=== PATIENT | male | born 1950 | race Caucasian/White ===

== ENCOUNTER 2023-04-16 09:42 | Day surgery (SDC) | payer MEDICARE, BC ==
--- NOTE | 2023-04-16 08:59 | HP ---
DATE OF SURGERY: 04/16/2023 HISTORY OF PRESENT ILLNESS: The patient is a 72-year-old off and on the past year worse recently, prior dilatation years ago more mid to lower esophagus. Solids get stuck there, usually meat sometimes bread. PAST MEDICAL HISTORY: Reflux. Colon polyp in the past. Cataracts. 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 Kidney stones in the past. PAST SURGICAL HISTORY: Kidney stone surgery. Hemorrhoid. Colonoscopy. Carpal tunnel. Elbow surgery. Rotator cuff surgery. Hernia repair. Collar bone in the past. MEDICATIONS: Multivitamins, potassium, omeprazole, mycophenolate mofetil, amlodipine, aspirin. ALLERGIES: NKDA. FAMILY HISTORY: Lymphoma. SOCIAL HISTORY: No smoking. Occasional alcohol use. REVIEW OF SYSTEMS: Fourteen systems reviewed. No chest pain or palpitations. Other systems negative or noncontributory as above and per preadmission questionnaire. PHYSICAL EXAMINATION: Height 5'11". BMI 24.4. GENERAL: No acute distress. HEENT: Sclerae nonicteric. EOMI. Oral mucous membranes moist. NECK: No JVD. CHEST: Equal excursion, nonlabored breathing. CVS: Regular rate and rhythm. ABDOMEN: Soft. EXTREMITIES: No significant edema. NEURO: Alert, oriented, moving extremities symmetrically. No gross motor deficits noted. RECTAL: Deferred timed to endoscopy exam. PSYCH: Appropriate mood and affect. SKIN: Dry. IMPRESSION: Dysphagia mid to lower esophagus, prior dilatation years ago. Family history negative for esophageal cancer. He is in need of EGD possible dilatation, possible biopsy. General risk of bleeding or infection, risk of bowel injury or perforation possibly requiring further procedure or transfer for stent placement, possibility of no improvement in swallowing possibly requiring other studies, dilator or referral. Possible no narrowing to dilate or possible narrowing is a functional problem and dilatation may not benefit. If dilatation performed and does improve his swallowing may need to be repeated again down the road. He understands all of the above but not limited to. He agrees to the planned procedure. He understands that the swallowing problems could be related to scleroderma which may not improve. Otherwise continue medications for other than reflux problem. Will proceed with outpatient EGD, possible biopsy possible dilatation under MAC anesthesia.
[~2023-04-16 09:42] MED LIST: Lactated Ringers 1,000 ML IV SCH
[2023-04-16] MEDS ORDERED: Lactated Ringers 1,000 ML IV SCH (10:30)
[2023-04-16] MEDS ORDERED: Xylocaine-Mpf 2% 5 Ml Vial ONE (11:58)
[2023-04-16] MEDS ORDERED: DIPRIVAN 200 MG/20 ML IV ONE (11:58)
[2023-04-16] MEDS ORDERED: Versed 2 MG/2 ML Injection ONE (11:58)
[2023-04-16 12:48] VITALS: O2SAT 100
[2023-04-16 13:00] VITALS: BP 145/75; PULSE 57
--- NOTE | 2023-04-17 09:01 | OP ---
SURGERY DATE/TIME: 04/16/2023 1159 PREOPERATIVE DIAGNOSIS: Dysphagia. POSTOPERATIVE DIAGNOSES: 1) Mild gastritis. 2) Benign appearing gastric polyps. 3) Distal esophageal narrowing with minimal inflammation. No visible mass. PROCEDURES: 1) EGD with cold biopsy of antrum for Helicobacter pylori. 2) Cold biopsy gastric polyp. 3) Cold biopsy of distal and mid esophagus to evaluate for inflammation and/or eosinophilic esophagitis or other etiology. 4) Distal esophageal narrowing balloon dilatation (size 20 balloon). SURGEON: Dr. Will Michaels. ANESTHESIA: MAC. ESTIMATED BLOOD LOSS: Minimal. INDICATIONS: As noted above. Risks and benefits explained in detail and not limited to and consent obtained. DESCRIPTION OF PROCEDURE AND FINDINGS: The patient is taken to the endoscopy room. MAC anesthesia introduced. After official time out and no disagreement with planned procedure, a bite block positioned. Video gastroscope easily passed down the esophagus. There is distal esophageal narrowing and some minimal inflammation. It was felt this is where he is having his symptoms and warranted dilatation. The scope is able to be passed back through here again through the pylorus to the junction of the third and fourth portion of duodenum. The duodenum is grossly unremarkable. No signs of any ulcers or obvious lesions. The scope is pulled back in the stomach. He had some mild gastritis. Cold biopsy taken to evaluate for Helicobacter pylori. Good hemostasis noted. On retroflex, there were no signs of any large hiatal hernia on endoscopic view. He did have some benign appearing gastric polyps. Cold biopsy is taken to evaluate for path but appeared to be fundal gland-type polyps. Scope pulled back. Good hemostasis noted. The scope pulled back up distal esophagus about 40 cm at gastroesophageal junction. Cold biopsy is taken on the esophageal side for path. Good hemostasis noted. There were no signs of any masses, narrowed area, other scleroderma or whether kind of a Schatzki's type narrowing. Either way it is felt to warrant dilatation. While the staff was getting the balloon ready went up to the mid esophagus and did random cold biopsy to evaluate for eosinophilic esophagitis to rule out other cause of his dysphagia. Otherwise the scope is passed back down in the stomach. A 20 balloon catheter is carefully passed. The scope pulled back up to the narrowed area where the balloon is carefully inflated first stage 30 seconds, second stage 30 seconds, final stage 20 balloon dilator for 2 minutes. The balloon is then decompressed and withdrawn. The area seemed to be more widely patent after the balloon. There did not appear to be any evidence of any full thickness issue secondary to dilatation. The stomach decompressed. Scope is withdrawn. The patient tolerated the procedure well. Findings discussed with the family out in the waiting room.
== END 2023-04-16 13:10 | disposition home or self-care (01) ==
LOC: SDC 09:42
PROVIDERS: ATTEND Surgery
DX: K29.70 Gastritis, unspecified, without bleeding (principal); R31.0 Gross hematuria; K31.7 Polyp of stomach and duodenum; K22.2 Esophageal obstruction
CPT/HCPCS: C1726; J2250; J2704

== ENCOUNTER 2025-02-19 07:54 | Day surgery (SDC) | payer MEDICARE, BC ==
[2025-02-19] MEDS ORDERED: Lactated Ringers 1,000 ML IV ONE (07:58)
[2025-02-19] MEDS: Lactated Ringers 1,000 ML IV SCH (08:16)
[2025-02-19] MEDS ORDERED: Xylocaine-Mpf 2% 5 Ml Vial ONE (09:52)
[2025-02-19] MEDS ORDERED: propofoL IV ONE (09:52)
[2025-02-19 10:36] VITALS: RESP 18; O2SAT 98
[2025-02-19 10:50] VITALS: BP 109/86; PULSE 64; TEMP 98
--- NOTE | 2025-02-23 07:49 | OP ---
SURGERY DATE/TIME: 02/19/2025 [id number] PREOPERATIVE DIAGNOSIS: Dysphagia. POSTOPERATIVE DIAGNOSIS: Esophageal stricture. PROCEDURE: Esophagogastroduodenoscopy with balloon dilatation to size 40. SURGEON: Donavon Mcbride MD ANESTHESIA: General. COMPLICATIONS: None. CONDITION: Stable. INDICATION: Patient has recurrent dysphagia, presents for evaluation and possible dilation. DESCRIPTION OF PROCEDURE AND FINDINGS: Patient taken to the endoscopy. MAC general sedation. Scope introduced. Pharyngoesophageal junction normal. Vocal cords normal. Esophagus normal down to EG junction. There was a stricture about size 30. Fundus, body, and antrum was normal. Pylorus was normal. Duodenal bulb was normal. Second portion was normal. Scope withdrawn and looped upon itself satisfactorily. No hiatal hernia. Scope was brought back to the EG junction. The balloon was placed in the stomach and then the balloon was brought back and centered on the EG junction under direct visualization, insufflated to 2nd stage at about 40 for 1 minute. This was clearly a significant improvement. The procedure was stopped at that point. It looked satisfactory. Patient tolerated the procedure satisfactorily.
== END 2025-02-19 11:00 | disposition home or self-care (01) ==
LOC: SDC 07:54
PROVIDERS: ATTEND Surgery
DX: K22.2 Esophageal obstruction (principal); R13.10 Dysphagia, unspecified
CPT/HCPCS: C1726; J2704